=== PATIENT | female | born 1990 ===

== ENCOUNTER 2017-08-11 15:38 | Emergency (ER) | payer BC ==
[~2017-08-11] VITALS: Ht 149.9 cm; Wt 51.3 kg
[2017-08-11] MEDS ORDERED: KETOROLAC TROMETHAMINE 30 MG/ML VIAL IM STA (16:40)
== END 2017-08-11 18:00 | disposition home or self-care (01) ==
LOC: FSED 15:38
DX: R07.89 Other chest pain (principal); M94.0 Chondrocostal junction syndrome [Tietze]
CPT/HCPCS: 71046; 81003; 81025; 93005; 99284; J1885